=== PATIENT | male | born 1965 | race Caucasian/White ===

== ENCOUNTER 2018-08-11 09:45 | Observation (INO) ==
[2018-08-11] MEDS ORDERED: ASPIRIN PO ONE (09:48)
[2018-08-11] MEDS ORDERED: NITROGLYCERIN TOP ONE (10:18)
--- NOTE | 2018-08-11 10:24 | Diag Imaging Result Doc PS360 ---
EXAM: CHEST-2 VIEWS INDICATION: cp TECHNIQUE: 2 views COMPARISON: 02/26/2016 FINDINGS: There is a prominent nodule in the superior segment of the left lower lobe. However, it is completely stable since 2016 suggesting a granuloma. The lungs are grossly clear, otherwise. There is no discrete pleural fluid collection or pneumothorax. The cardiomediastinal silhouette and central vasculature are grossly unremarkable. IMPRESSION: Stable chest with no definite acute pathology by plain radiograph. Electronically signed by Maynor Serna 08/11/2018 10:22 AM
[2018-08-11 10:30] LABS: INR 0.99; PROTIME 13.6 Seconds (11.0-16.0)
[2018-08-11 10:31] LABS: PTT 30.9 Seconds (22.3-41.8)
[2018-08-11 10:40] LABS: AGAP 13; ALBUMIN 4.6 g/dL (3.5-5.0); ALKALINE PHOSPHATASE 180 U/L (32-122); BUN 14 mg/dL (8-22); CALCIUM 8.6 mg/dL (8.8-10.2); CHLORIDE 106 mmol/L (98-107); CK PROFILE 61 U/L (24-204); COSMO 284; CREATININE 0.7 mg/dL (0.7-1.2); ESTIMATED GFR > 60; GLUCOSE 110 mg/dL (70-104); GOT 21 U/L (10-34); GPT 31 U/L (10-44); POTASSIUM 4.3 mmol/L (3.5-5.1); SODIUM 142 mmol/L (136-145); TCO2 24 mmol/L (25-35); TOTAL PROTEIN 7.4 g/dL (6.3-8.3)
--- NOTE | 2018-08-11 11:17 | EKG Report ---
Test Performed on : 08/11/2018 09:52:28 AM Test Reason : cp Blood Pressure : / mmHG Vent. Rate : 071 BPM Atrial Rate : 071 BPM P-R Int : 152 ms QRS Dur : 084 ms QT Int : 382 ms P-R-T Axes : 048 039 030 degrees QTc Int : 415 ms Normal sinus rhythm. Normal ECG When compared with ECG of 26-FEB-2016 20:42, No significant change was found Unconfirmed Result
[2018-08-11] MEDS ORDERED: TYLENOL PO PRN (12:17)
--- NOTE | 2018-08-11 12:31 | EKG Report ---
Test Performed on : 08/11/2018 11:53:57 AM Test Reason : repeat Blood Pressure : / mmHG Vent. Rate : 063 BPM Atrial Rate : 063 BPM P-R Int : 172 ms QRS Dur : 094 ms QT Int : 382 ms P-R-T Axes : 049 033 025 degrees QTc Int : 390 ms Normal sinus rhythm. with sinus arrhythmia. Normal ECG When compared with ECG of 11-AUG-2018 09:52, (Unconfirmed) No significant change was found Unconfirmed Result
--- NOTE | 2018-08-11 12:51 | HISTORY AND PHYSICAL ---
PRIMARY CARE PHYSICIAN: Dr. Prachi Mann CHIEF COMPLAINT: Dizziness and chest pain. HISTORY OF PRESENT ILLNESS: Mr. Ferrara is a 53-year-old male with a history of gastroesophageal reflux and hiatal hernia, who presents with acute onset of chest pain while at his computer today. This morning, he was playing a computer game when he began to feel a left arm pain followed by a dull midsternal pain/ache. His states that he was diaphoretic, but the patient himself denies that. There was no shortness of breath and no nausea or vomiting. He decided to come to the ER for evaluation. The total time of discomfort was right around 20 to 30 minutes. Pain was relieved when he got to the ER and was given nitroglycerin and aspirin. In the ER, he had a chest x-ray done which shows a prominent nodule in the superior segment of the left upper lobe which has not changed since 2016, suggesting granuloma, and his EKG shows sinus rhythm without acute ST or T abnormalities. He reports prior to today he has been essentially in his normal state of health. He does report getting perhaps a little bit more short of breath than he should when he walks up a flight of steps but denies chest pain. He has not had any lower extremity edema. No orthopnea. No fever, chills, cough or congestion. As such, he is going to be admitted for observation status for chest pain. PAST MEDICAL HISTORY: 1. Gastroesophageal reflux disease. 2. Hiatal hernia. PAST SURGICAL HISTORY: Appendectomy. SOCIAL HISTORY: Quit smoking 9 years ago. Denies current tobacco or drug use. He reports drinking 2 to 3 beers every other week. FAMILY HISTORY: No significant premature coronary artery disease or coronary disease, for that matter, in either his parents or grandparents. Mother in a car wreck. Father from cancer. REVIEW OF SYSTEMS: A 14-point review of systems is obtained and found to be negative with the exception of the HPI. ALLERGIES: None. HOME MEDICATIONS: Have not been compiled. We will await that to be done by the nursing staff. PHYSICAL EXAMINATION: VITAL SIGNS: Blood pressure is 127/86, heart rate 67, respiratory rate 17, O2 saturation is 97% on room air. Temperature is 98 degrees Fahrenheit. GENERAL: A well-developed, well-nourished male lying in hospital bed in no acute distress. NEUROLOGICAL: Awake, alert and oriented. Follows commands. No focal deficit. HEENT: Head is atraumatic and normocephalic. Pupils are equal, round and reactive to light. Oral mucosa is moist. NECK: Trachea is midline. There is no JVD. CHEST: Clear to auscultation. CARDIOVASCULAR: Regular rate and rhythm. S1 and S2 noted. There are no murmurs. GASTROINTESTINAL: Soft, nondistended and nontender. Bowel sounds active. EXTREMITIES: No edema. Pulses 2+ bilaterally. DIAGNOSTIC DATA: Chest x-ray shows right upper lobe granuloma which appears to be chronic. EKG is sinus rhythm, no acute ST changes. Sodium is 142, potassium 4.3, chloride 106, CO2 is 24, anion gap is 13, BUN is 14, creatinine 0.7, glucose 110. AST is 21, ALT is 31, alkaline phosphatase 180. CK is 61. Troponin negative. ProBNP is 67. Albumin 4.6. CBC is pending as is a D-dimer. ASSESSMENT AND PLAN: 1. Chest pain, atypical in nature. We will pursue stress testing and echocardiogram. Keep him n.p.o. after midnight. Continue to trend his cardiac enzymes and make sure he is on aspirin and PPI daily. Keep him on telemetry. 2. Right upper lobe granuloma. Seems to be stable per report. We will have him follow up with Dr. Mann. 3. Gastroesophageal reflux disease/hiatal hernia. Continue his PPI. 4. DVT prophylaxis. The patient is low risk and ambulatory. Dictated by KEO Acosta for Moris Lowry MD cc: KEO Acosta MD Marlin D. Gill, MD
[2018-08-11 13:16] LABS: BASO# 0.05 X1000 (0.0-0.2); BASO% 0.6 % (0.0-0.8); EOS# 0.39 X1000 (0.0-0.7); EOS% 4.9 % (0.0-10.0); HEMATOCRIT 41.8 % (42.0-52.0); HEMOGLOBIN 14.4 g/dL (14.0-18.0); IMM GRAN# 0.03 X1000 (0.0-0.04); IMM GRAN% 0.4 % (0.0-0.5); LYMPH# 2.08 X1000 (1.2-3.4); LYMPH% 26.1 % (20.5-51.1); MCH 29.8 PG (27-31); MCHC 34.4 g/dL (33-37); MCV 86.4 FL (81-99); MONO# 0.74 X1000 (0.11-0.59); MONO% 9.3 % (1.7-9.3); MPV 11.2 FL (7.4-10.4); NEUT# 4.68 X1000 (1.4-6.5); NEUT% 58.7 % (42.2-75.2); PLT 250 X1000 (130-400); RBC 4.84 XMIL (4.7-6.1); RDW 12.3 % (11.5-14.5); WBC 7.97 X1000 (4.8-10.8)
[2018-08-11 13:20] LABS: PROTIME 13.7 Seconds (11.0-16.0)
[2018-08-11 13:23] LABS: D-DIMER < 0.27 ug/mLFEU (0.0-0.52)
[2018-08-11] MEDS: PRILOSEC PO SCH (13:58)
--- NOTE | 2018-08-11 15:34 | HISTORY AND PHYSICAL ---
ADDENDUM: Patient seen and examined by myself. Full note dictated and discussed with nurse practitioner. Patient presented to the hospital with chest pain, left arm radiation, and some nausea. We will admit him to the hospital and rule out NC. Further orders as needed. cc: Moris Lowry MD
[2018-08-12] MEDS: PRILOSEC PO SCH (06:03)
[2018-08-12 06:42] LABS: HEMATOCRIT 41.7 % (42.0-52.0); HEMOGLOBIN 14.4 g/dL (14.0-18.0); MCH 29.9 PG (27-31); MCHC 34.5 g/dL (33-37); MCV 86.5 FL (81-99); MPV 11.4 FL (7.4-10.4); RBC 4.82 XMIL (4.7-6.1); RDW 12.4 % (11.5-14.5); WBC 8.84 X1000 (4.8-10.8)
[2018-08-12 07:10] LABS: AGAP 9; BUN 16 mg/dL (8-22); CALCIUM 8.4 mg/dL (8.8-10.2); CHLORIDE 107 mmol/L (98-107); COSMO 283; CREATININE 0.6 mg/dL (0.7-1.2); ESTIMATED GFR > 60; GLUCOSE 107 mg/dL (70-104); POTASSIUM 4.1 mmol/L (3.5-5.1); SODIUM 141 mmol/L (136-145); TCO2 25 mmol/L (25-35)
[2018-08-12] MEDS ORDERED: ASPIRIN PO SCH (09:00)
--- NOTE | 2018-08-12 14:33 | ECHO REPORT ---
ORDER DATE: 08/11/2018 INTERPRETING PHYSICIAN: Dr. Sg Hemphill. ECHOCARDIOGRAPHIC MEASUREMENTS: 1. Interventricular septum 1.0 cm. 2. Left ventricular posterior wall 0.9 cm. 3. Diastolic diameter 4.0 cm. 4. Left atrium 3.3 cm. 5. Aorta 2.7 cm. 6. Aortic valve leaflets are trileaflet. 7. Pulmonic valve was normal. 8. Mitral valve was normal. 9. Tricuspid valve was normal. 10. There is trace pulmonary regurgitation. 11. Normal left ventricular cavity size. 12. Estimated ejection fraction of 60-65%. 13. There is trace tricuspid regurgitation. 14. Peak velocity across the tricuspid valve less than 2 m/sec. 15. There is mild mitral regurgitation. 16. Peak velocity across the aortic valve less than 2 m/sec by Doppler studies. 17. There is no aortic stenosis or regurgitation. 18. There is no pericardial effusion or obvious intracardiac mass or thrombus seen. cc: MD Robbie Lopez CRNP Gregory S. Cheatham, MD
--- NOTE | 2018-08-12 15:57 | Diag Imaging Result Document ---
PROCEDURE NAME: MYOCARDIAL PERF SCAN, STR/REST - 08/12/2018 REQUESTING PHYSICIAN: Dr. Campbell INDICATION: This is a 53-year-old male with chest pain. Coronary heart disease is suspected. DESCRIPTION OF PROCEDURE: The patient came into the nuclear lab and received a rest injection of technetium 99 sestamibi 13.4 mCi. Multiple tomographic views of the cardiac structures were obtained at rest. Subsequently the patient underwent a treadmill exercise protocol and at peak exercise was injected with technetium 99 sestamibi 39.9 mCi. Multiple tomographic views of the cardiac structures were obtained following completion of the exercise protocol. SUMMARY OF ELECTROCARDIOGRAPHIC PORTION OF THE STUDY: Resting ECG shows sinus rhythm at rate of 69 beats per minute. Resting blood pressure is 131/93. Resting ECG looks normal. The patient walked on the treadmill for a total time of 10 minutes. The patient completed 3 stages of the Sylvester protocol and walked for 1 minute into the fourth stage, achieving a maximum heart rate of 164 beats per minute, representing 97% of maximum predicted heart rate for his age. Peak blood pressure is 192/89. Peak work load is 11.7 METS. Peak exercise ECG shows sinus tachycardia without any ischemic changes. The patient reported mild "chest cramp" on the right side that resolved quickly with recovery. No substernal limiting chest pain was reported. No true ischemic changes were identified on the ECG. During the recovery phase, no significant abnormalities were noted. Level of stress achieved based on Peak systolic BP x Peak HR is high at 31,488. CONCLUSIONS: In summary, the electrocardiographic response to exercise appears to be normal. The clinical response is nonspecific. SUMMARY OF MYOCARDIAL PERFUSION PORTION OF THE STUDY: Poststress tomographic views of the left ventricle showed normal homogeneous distribution of radiotracer throughout the entire left ventricular myocardium. There is no evidence of any postexercise defect. The rest images showed normal perfusion. The polar plots revealed the same. There is no evidence of neither inducible ischemia nor myocardial scar. Gated SPECT shows excellent left ventricular systolic function. Ejection fraction is 81%. Normal ventricular volumes. No wall motion abnormality. Lung/heart ratio is normal. TID is normal. CONCLUSIONS: In summary, this study showed: 1. Normal electrocardiographic response to exercise. 2. Normal poststress myocardial perfusion scan. There is no scintigraphic evidence of effort induced myocardial ischemia. 3. Normal left ventricular systolic function. Ejection fraction is estimated at 81% with normal ventricular volumes and no wall motion abnormality. 4. This study represents low risk for ischemic events. Clinical correlation is recommended. cc: MD Robbie Gustafson CRNP MTDD
[2018-08-12 19:41] VITALS: BP 130/87
--- NOTE | 2018-08-13 19:31 | DISCHARGE SUMMARY ---
ADMISSION DATE: 08/11/2018 DISCHARGE DATE: 08/12/2018 ADMISSION DIAGNOSES: 1. Chest pain, atypical. 2. Right upper lobe granuloma. DISCHARGE DIAGNOSES: 1. Chest pain, atypical, resolved. Stress test is negative. 2. Right upper lobe granuloma. No changes on that. 3. Gastroesophageal reflux disease with hiatal hernia, stable. CONSULTATIONS: None. PROCEDURES: None. HOSPITAL COURSE: On 08/11/2018, Mr. Juan M Ferrara presented with complaints of dizziness and chest pain. He has a history of GERD and hiatal hernia. Apparently the pain was acute onset while at his computer, just playing a computer game. He began to feel his left arm hurt and go into a dull mid sternal ache. He became diaphoretic, but the patient denied that he was that way, that was just according to the . There was no shortness of breath, nausea, or vomiting. Decided to go ahead and go to the ER for evaluation. Discomfort was only for 20 to 30 minutes. It was relieved when he got nitroglycerin and aspirin in the ER. X-rays showed a nodule in the left upper lobe, that was no change from 2016. EKG was normal sinus without any ST changes. So, he stayed overnight to be observed. Cardiac enzymes were negative. He had a cardiac stress that was normal and he was chest pain free, so he was discharged home. DISCHARGE VITAL SIGNS: Temperature 97.6, heart rate 68, respiratory rate 18, blood pressure 130/87. O2 saturation 96% on room air. DISCHARGE LABORATORY DATA: White blood cells 8,000, hemoglobin 14, hematocrit 41, platelet count 244. Sodium 141, potassium 4.1, BUN 16, creatinine 0.6, glucose 107, calcium 8.4. Cardiac enzymes negative. Triglycerides normal. Total cholesterol 122. PERTINENT IMAGING: On 08/11/2018 he had a chest x-ray, stable chest. On 08/11/2018 he had an echocardiogram which showed EF of 60% to 65%. There is mild MR, mild VA. On 08/12/2018 he had a myocardial perfusion scan which was normal. EKG with normal sinus rhythm. No ST changes. Rate 63. QTC 390. DISCHARGE ACTIVITIES: As tolerated. DISCHARGE DIET: Heart healthy. DISCHARGE INSTRUCTIONS: If your condition changes, contact your physician and/or return to the emergency department. Changes may include, but are not limited to, shortness of breath, increased fatigue, excessive bleeding, unexplained weight loss or gain, unimaginable pain, signs or symptoms of infection. PHYSICIAN FOLLOWUP: Dr. Prachi Mann, the primary care provider. DISCHARGE MEDICATIONS: Aspirin 325 mg p.o. daily and rosuvastatin 10 mg p.o. daily. DISCHARGE DISPOSITION: Home. Dictated by KEO Tolentino for Cong Castle MD MTDD
== END 2018-08-12 21:35 | disposition home or self-care (01) ==
LOC: P.ED 09:45 → P.MEDSURG 09:45 → SUATTDRO 12:19
PROVIDERS: ADMIT Family Medicine; ATTEND Internal Medicine
CPT/HCPCS: 71020; 71046; 78452; 80048; 80053; 80061; 82550; 83721; 83880; 84484; 85025; 85027; 85379; 85610; 85730; 93005; 93017; 93306; 99285; A9270; A9500